=== PATIENT | female | born 1995 | race Caucasian/White ===

== ENCOUNTER 2017-01-08 17:50 | Emergency (ER) | payer OTHER ==
[~2017-01-08] VITALS: Ht 162.6 cm; Wt 53.1 kg
[2017-01-08 18:00] VITALS: BP 114/87
== END 2017-01-08 18:56 | disposition home or self-care (01) ==
LOC: ER 17:59
DX: S13.4XXA Sprain of ligaments of cervical spine, initial encounter (principal); Z88.0 Allergy status to penicillin; V43.52XA Car driver injured in collision with other type car in traffic accident, initial encounter; Y93.89 Activity, other specified; Y92.89 Other specified places as the place of occurrence of the external cause; Y99.8 Other external cause status
CPT/HCPCS: 99281; A4606; Z7610; Z7502